=== PATIENT | male | born 1970 | race Hispanic/Latino ===

== ENCOUNTER 2017-11-15 16:14 | Emergency (ER) | payer MEDICAID ==
[2017-11-15 16:15] VITALS: BMI 29.5
[2017-11-15] MEDS ORDERED: Sodium Chloride 0.9% 1,000 ML IV ONE (17:38)
--- NOTE | 2017-11-15 17:43 | C.PDOC ---
History Of Present Illness 47yo male with history of heroin and cocaine abuse, presents to ED with complaints of right sided chest pain. Patient describes the pain as sharp and worse with deep breathing or movement. Patient deneis any trauma or injury to his chest; also denies any DVT or PE in the past. He has no other medical complaints. Time Seen by Provider: 11/15/17 17:13 Chief Complaint (Nursing): Chest Pain History Per: Patient History/Exam Limitations: no limitations Onset/Duration Of Symptoms: Days Current Symptoms Are (Timing): Still Present Quality: Sharp, "Pain" Exacerbating Factors: Movement, Deep Breathing Additional History Per: Patient Past Medical History Reviewed: Historical Data, Nursing Documentation, Vital Signs Vital Signs: Last Vital Signs Temp 98.5 F 11/15/17 16:58 Pulse 90 11/15/17 16:56 Resp 15 11/15/17 16:56 BP 131/87 11/15/17 16:56 Pulse Ox 96 11/15/17 18:52 - Medical History PMH: Anxiety, Depression Denies: Diabetes, HTN Surgical History: No Surg Hx Family History: States: No Known Family Hx - Social History Hx Tobacco Use: Yes Hx Alcohol Use: Yes (beer/vodka) Hx Substance Use: Yes (cocaine, pot, heroin) - Immunization History Hx Tetanus Toxoid Vaccination: No (Unknown) Hx Influenza Vaccination: Yes (unknown) Hx Pneumococcal Vaccination: No (unknown) Review Of Systems Except As Marked, All Systems Reviewed And Found Negative. Cardiovascular: Positive for: Chest Pain Respiratory: Negative for: Shortness of Breath Physical Exam - Physical Exam Appears: Non-toxic, No Acute Distress Skin: Normal Color Eye(s): bilateral: Normal Inspection Neck: Normal ROM, Supple Chest: Symmetrical, Tenderness (right anterior chest wall tenderness; no cellulitic component noted) Cardiovascular: Rhythm Regular Respiratory: Normal Breath Sounds Neurological/Psych: Oriented x3 ED Course And Treatment - Laboratory Results Result Diagrams: 11/15/17 17:55 ECG: Interpreted By Me, Viewed By Me ECG Rhythm: Sinus Rhythm Interpretation Of ECG: Normal axis, normal intervals, no ST/T wave abnormalities Rate From EC O2 Sat by Pulse Oximetry: 96 (RA) Pulse Ox Interpretation: Normal Medical Decision Making Medical Decision Making: Impression: Chest wall pain Plan: -- Labs -- CXR -- Pepcid 20mg IVP -- Toradol 30mg IVP -- IV Fluids patient remained comfortable during evauation. Labs and ct scan of chest pending. Patient has no family hx of heart disease. (+) tob and drug use. Case endorsed to Dr. Nelson at 1900 pending labs, reevaluation and disposition Disposition Discussed With : Jaimie Nelson - Disposition Disposition Time: 19:00 Condition: STABLE Forms: [employer] Connect (Portuguese) - Clinical Impression Clinical Impression: Chest pain - Scribe Statement The provider has reviewed the documentation as recorded by the Scribe (Nichol Vaughn) Provider Attestation: All medical record entries made by the Scribe were at my direction and personally dictated by me. I have reviewed the chart and agree that the record accurately reflects my personal performance of the history, physical exam, medical decision making, and the department course for this patient. I have also personally directed, reviewed, and agree with the discharge instructions and disposition. Addendum Addendum: 11/15/17 18:50 patient remained comfortable during evaluation case endorsed to Dr. Nelson at 1900 pending labs, ct scan of chest, reevaluation and disposition
[2017-11-15 17:59] LABS: BASO # 0.1 K/uL (0.0-0.2); BASO % 0.5 % (0.0-2.0); EOS # 0.1 K/uL (0.0-0.7); EOS % 1.2 % (0.0-4.0); HEMOGLOBIN 10.6 g/dL (12.0-18.0); LYMPH # 1.2 K/uL (1.0-4.3); LYMPH % 11.1 % (20.0-40.0); MEAN CELL VOLUME 84.5 fL (80.0-94.0); MEAN CORPUSCULAR HEMOGLOBIN 28.4 pg (27.0-31.0); MEAN CORPUSCULAR HGB CONC 33.6 g/dL (33.0-37.0); MEAN PLATELET VOLUME 7.5 fL (7.2-11.7); MONO % 9.1 % (0.0-10.0); NEUT # 8.5 K/uL (1.8-7.0); NEUT % 78.1 % (50.0-75.0); NRBC % 0.1 % (0.0-2.0); RBC 3.72 Mil/uL (4.40-5.90); RED CELL DISTRIBUTION WIDTH 15.1 % (11.5-14.5); WHITE BLOOD COUNT 10.9 K/uL (4.8-10.8)
[2017-11-15] MEDS ORDERED: Sodium Chloride 0.9% 1,000 ML ONE (18:02)
[2017-11-15 19:04] LABS: ALB/GLOB RATIO 1.1 (1.0-2.1); ALBUMIN 3.8 g/dL (3.5-5.0); CALCIUM 8.6 mg/dl (8.6-10.4); GFR AFRICAN-AMERICAN > 60; GFR NON-AFRICAN AMERICAN > 60; LIPASE 36 U/L (23-300)
[2017-11-15 19:05] LABS: ALT/SGPT 12 U/L (21-72); AST/SGOT 25 U/L (17-59); BLOOD UREA NITROGEN 8 mg/dL (9-20)
[2017-11-15 19:16] LABS: B-TYPE NATRIURETIC PEPTIDE 56.6 pg/mL (0-450)
[2017-11-15] MEDS ORDERED: Iodixanol 320 MG/ML 100 ML BOTTLE IV ONE (19:43)
--- NOTE | 2017-11-15 20:59 | CT ---
EXAM: CT Angiography Chest With Intravenous Contrast CLINICAL HISTORY: 47 years old, male; Pain; Chest wall pain; Additional info: Chest pain and elevated d-dimer TECHNIQUE: Axial computed tomographic angiography images of the chest with intravenous contrast using pulmonary embolism protocol. All CT scans at this facility use one or more dose reduction techniques, viz.: automated exposure control; ma/kV adjustment per patient size (including targeted exams where dose is matched to indication; i.e. head); or iterative reconstruction technique. MIP reconstructed images were created and reviewed. Coronal and sagittal reformatted images were created and reviewed. CONTRAST: 100 mL of visipaque 320 administered intravenously. COMPARISON: No relevant prior studies available. FINDINGS: Limitations: Suboptimal timing of bolus. Streak artifact - mild. Pulmonary arteries: No definite pulmonary embolism. Aorta: No aneurysm. No dissection. Lungs: Mild paraseptal and centrilobular emphysematous changes. Mild atelectasis, right greater than left. [id number] peripheral consolidation within right upper lobe. Scattered mild groundglass opacities within right upper, right middle, right lower lobes. Few pulmonary nodules, up to 0.4 cm. Pleural space: Small RIGHT pleural effusion. No pneumothorax. Heart: No cardiomegaly. No significant pericardial effusion. Mediastinum: Probable small hiatal hernia. Bones/joints: Small well corticated lucent lesion left seventh rib, likely benign.. No acute fracture. Soft tissues: Moderate focal stranding right posterior lateral chest wall. Lymph nodes: Several subcentimeter short axis mediastinal and hilar lymph nodes. Liver: Low-attenuation lesion with benign imaging features, likely cyst. Spleen: Mildly enlarged. Kidneys and ureters: Few probable RIGHT renal cysts. Few too small to characterize lesions within kidneys. IMPRESSION: 1. No definite CT evidence of pulmonary embolism. 2. Probable pneumonia, predominantly involving right upper lobe. Followup to resolution to exclude underlying pathology. 3. Focal stranding within right chest wall. Clinical correlation is needed. 4. Pulmonary nodules. For low-risk patients, no follow-up is necessary. For high-risk patients (smoking history or other known risk factors) an optional CT at 12 months could be performed. 5. Incidental/non-acute findings are described above.
[2017-11-15] MEDS ORDERED: Piperacillin/Tazobact 3.375 gm 100 ML IVPB STA (21:17)
[2017-11-15 21:55] VITALS: BP 133/86; PULSE 100; RESP 18; TEMP 98.1; O2SAT 95
--- NOTE | 2017-11-16 09:15 | RAD ---
HISTORY: chest pain COMPARISON: No prior. TECHNIQUE: Chest PA and lateral FINDINGS: LUNGS: Peripheral right upper lobe consolidation. PLEURA: Small right pleural effusion. No pneumothorax apparent. CARDIOVASCULAR: Normal. OSSEOUS STRUCTURES: No significant abnormalities. VISUALIZED UPPER ABDOMEN: Normal. OTHER FINDINGS: None. IMPRESSION: Peripheral right upper lobe consolidation. Follow-up to resolution. At the time of this dictation, a CT scan of the chest had already been performed and the emergency department already notified of the findings.
--- NOTE | 2017-11-18 03:58 | CARD ---
APPROVED REPORT EKG Measurement Heart [id number] <Conclusion> Normal sinus rhythm Normal ECG
== END 2017-11-15 22:00 | disposition home or self-care (01) ==
LOC: C.ER 16:14
DX: R07.9 Chest pain, unspecified (principal)
CPT/HCPCS: 71046; 71275; 80053; 83690; 83880; 84484; 85025; 85378; 96361; 96365; 96375; 99285; J1885; J2543; J7040; Q9967